=== PATIENT | female | born 1990 ===

== ENCOUNTER 2022-11-05 18:40 | Outpatient (REF) | payer OTHER, SELFPAY ==
[2022-11-06 09:02] LABS: CT PCR NOT DETECTED (Not Detect.); NG PCR NOT DETECTED (Not Detect.)
== END 2022-11-05 18:41 | disposition home or self-care (01) ==
LOC: HO.LNP 18:40
PROVIDERS: Visit Provider Nurse Practitioner Family
DX: Z11.3 Encounter for screening for infections with a predominantly sexual mode of transmission (principal)
CPT/HCPCS: 0353U